=== PATIENT | female | born 1965 ===

== ENCOUNTER 2018-12-13 08:30 | Day surgery (SDC) | payer OTHER ==
[~2018-12-13 08:30] MED LIST: CRESTOR10 MG PO; JANUMET XR 50-1 EAC1 PO; TRICOR145 MG PO
[2018-12-13] MEDS ORDERED: DUI500 PO (14:44)
[2018-12-13] MEDS ORDERED: OXYC1TAB9 PO (14:44)
== END 2018-12-13 18:50 | disposition home or self-care (01) ==
LOC: CIR.AMB 08:30
DX: M75.02 Adhesive capsulitis of left shoulder (principal); M24.612 Ankylosis, left shoulder